=== PATIENT | female | born 1985 | race Caucasian/White ===

== ENCOUNTER 2017-07-24 11:14 | Inpatient (IN) | payer MEDICAID ==
[2017-07-24 13:31] LABS: HEMOGLOBIN A1C 6.8 % (0-5.9)
[2017-07-24 15:56] LABS: ADD MAN DIFF? NO
[2017-07-24 15:57] LABS: BASOPHILS % 0.1 % (0.0-2.0); EOSINOPHILS # 0.1 10^3/ul (0.0-0.5); EOSINOPHILS % 1.7 % (0.0-7.0); HEMATOCRIT 30.1 % (37.0-47.0); HEMOGLOBIN 9.7 g/dl (12.0-16.0); LYMPHOCYTES # 1.4 10^3/ul (0.8-2.9); LYMPHOCYTES % 18.8 % (15.0-51.0); MEAN CORPUSCULAR HEMOGLOBIN 29.3 pg (29.0-33.0); MEAN CORPUSCULAR HGB CONC 32.2 g/dl (32.0-37.0); MEAN CORPUSCULAR VOLUME 90.9 fl (82.0-101.0); MEAN PLATELET VOLUME 10.5 fl (7.4-10.4); MONOCYTE # 0.4 10^3/ul (0.3-0.9); MONOCYTES % 5.8 % (0.0-11.0); NEUTROPHIL # 5.5 10^3/ul (1.6-7.5); NEUTROPHILS % 72.7 % (39.0-77.0); PLATELET COUNT 250 10^3/UL (140-415); RED BLOOD COUNT 3.31 10^6/ul (4.20-5.40); RED CELL DISTRIBUTION WIDTH 13.8 % (11.5-14.5)
[2017-07-24 15:57] LABS: WHITE BLOOD COUNT 7.6 10^3/ul (4.8-10.8)
[2017-07-24] MEDS ORDERED: GLUCAGON 1 MG INJ IM (16:00)
[2017-07-24] MEDS ORDERED: GLUCOSE GEL 15 GRAM TUBE PO ×2 (16:00)
[2017-07-24] MEDS ORDERED: GLUCOSE GEL 15 GRAM TUBE BUCCAL (16:00)
[2017-07-24] MEDS ORDERED: DEXTROSE 50% 50 ML SYRINGE IV ×2 (16:00)
[2017-07-24 16:04] LABS: ALANINE AMINOTRANSFERASE 30 IU/L (13-69); ALBUMIN 3.7 g/dl (3.3-4.9); ALBUMIN/GLOBULIN RATIO 1.02; ALKALINE PHOSPHATASE 106 IU/L (42-121); ANION GAP 12 (8-16); ASPARTATE AMINO TRANSFERASE 61 IU/L (15-46); BILIRUBIN,INDIRECT 0.3 mg/dl (0-1.1); BILIRUBIN,TOTAL 0.3 mg/dl (0.2-1.3); BLOOD UREA NITROGEN 7 mg/dl (7-20); CALCIUM 9.1 mg/dl (8.4-10.2); CARBON DIOXIDE 23 mmol/L (21-31); CHLORIDE 106 mmol/L (97-110); CREATININE 0.51 mg/dl (0.44-1.00); GLUCOSE 134 mg/dl (70-220); POTASSIUM 4.2 mmol/L (3.5-5.1); SODIUM 137 mmol/L (135-144); TOTAL PROTEIN 7.3 g/dl (6.1-8.1)
[2017-07-24] MEDS: INSULIN ASPART [NOVOLOG] 3 ML PEN SC ×2 (17:51→20:41)
[2017-07-24] MEDS: ACCU-CHEK XX ×2 (17:52→20:10)
[2017-07-24] MEDS: CEPHALEXIN 500 MG CAP PO (20:43)
[2017-07-25] MEDS: INSULIN ASPART [NOVOLOG] 3 ML PEN SC ×3 (08:06→17:27)
[2017-07-25] MEDS: CEPHALEXIN 500 MG CAP PO ×3 (08:46→21:39)
[2017-07-25 09:14] LABS: ADD UMIC NO; UR ASCORBIC ACID NEGATIVE (NEGATIVE); UR BILIRUBIN (Dip) NEGATIVE (NEGATIVE); UR BLOOD (Dip) NEGATIVE (NEGATIVE); UR CLARITY CLEAR (CLEAR); UR COLOR YELLOW (YELLOW); UR GLUCOSE (Dip) 1+ mg/dL (NEGATIVE); UR KETONES (Dip) NEGATIVE (NEGATIVE); UR LEUKOCYTE ESTERASE (Dip) NEGATIVE Leu/ul (NEGATIVE); UR NITRITE (Dip) NEGATIVE (NEGATIVE); UR SPECIFIC GRAVITY (Dip) 1.015 (1.003-1.030); UR TOTAL PROTEIN (Dip) NEGATIVE (NEGATIVE); UR UROBILINOGEN (Dip) NEGATIVE (NEGATIVE)
[2017-07-25] MEDS: NPH, HUMAN INSULIN ISOPHANE 3ML VIAL SC ×2 (11:08→21:44)
[2017-07-25 16:00] LABS: COLLECTION PERIOD 24 hrs
[2017-07-25 16:51] LABS: COLLECTION PERIOD 24 hrs; SCRET 0.51 mg/dl (0.44-1.00); VOLUME 3800 ml/24hrs; VOLUME 3800 mls
[2017-07-25] MEDS ORDERED: INSULIN ASPART [NOVOLOG] 3 ML PEN SC (17:05)
[2017-07-25 17:10] LABS: CREATININE CLEARANCE 117.6 mls/min (84.0-162.0); CREATININE,URINE RANDOM 22.73 mg/dl (20-320)
[2017-07-25 17:21] LABS: CREATININE 0.45 mg/dl (0.44-1.00)
[2017-07-25] MEDS: ACCU-CHEK XX ×4 (19:00→21:37)
[2017-07-26] MEDS: ACCU-CHEK XX ×4 (08:29→20:31)
[2017-07-26] MEDS: NPH, HUMAN INSULIN ISOPHANE 3ML VIAL SC ×2 (08:36→21:21)
[2017-07-26] MEDS: INSULIN ASPART [NOVOLOG] 3 ML PEN SC ×2 (08:37→18:15)
[2017-07-26] MEDS: CEPHALEXIN 500 MG CAP PO ×3 (09:19→21:17)
[2017-07-27] MEDS: NPH, HUMAN INSULIN ISOPHANE 3ML VIAL SC ×2 (08:10→21:13)
[2017-07-27] MEDS: INSULIN ASPART [NOVOLOG] 3 ML PEN SC ×2 (08:11→17:53)
[2017-07-27] MEDS: ACCU-CHEK XX ×4 (08:16→20:06)
[2017-07-27] MEDS: CEPHALEXIN 500 MG CAP PO ×3 (08:58→21:09)
[2017-07-28] MEDS: ACCU-CHEK XX ×2 (07:38→10:24)
[2017-07-28] MEDS: CEPHALEXIN 500 MG CAP PO (07:57)
[2017-07-28] MEDS: INSULIN ASPART [NOVOLOG] 3 ML PEN SC (07:59)
[2017-07-28] MEDS: NPH, HUMAN INSULIN ISOPHANE 3ML VIAL SC (08:00)
== END 2017-07-28 13:35 | disposition home or self-care (01) | DRG 781 ==
LOC: OBT 11:14 → L-D 11:14 → OBT 12:25 → PP1 07-25 20:34 → L-D 12:25
PROVIDERS: Obstetrics & Gynecology
DX: O24.419 Gestational diabetes mellitus in pregnancy, unspecified control (principal); Z3A.28 28 weeks gestation of pregnancy
CPT/HCPCS: 76815; 76817; 76818; 80053; 81003; 82565; 82575; 82731; 82962; 83036; 84156; 85025

== ENCOUNTER 2017-10-07 06:15 | Inpatient (IN) | payer MEDICAID ==
[2017-10-07] MEDS ORDERED: METHYLERGONOVINE 0.2 MG INJ IM (08:00)
[2017-10-07] MEDS ORDERED: MISOPROSTOL 200 MCG TAB PR (08:00)
[2017-10-07] MEDS ORDERED: LIDOCAINE 1% (MPF) 30 ML INJ INJ (08:00)
[2017-10-07] MEDS ORDERED: CARBOPROST 250 MCG INJ IM (08:00)
[2017-10-07] MEDS ORDERED: OXYTOCIN 30 UNITS/LR 500 ML IV ×3 (08:00)
[2017-10-07] MEDS ORDERED: IBUPROFEN 600 MG TAB PO (08:00)
[2017-10-07] MEDS ORDERED: OXYCODONE/ACETAMINOPHEN (5/325) TAB PO (08:00)
[2017-10-07 08:21] LABS: ADD MAN DIFF? NO
[2017-10-07 08:32] LABS: WHITE BLOOD COUNT 5.2 10^3/ul (4.8-10.8)
[2017-10-07 08:32] LABS: BASOPHILS % 0.2 % (0.0-2.0); EOSINOPHILS # 0.1 10^3/ul (0.0-0.5); EOSINOPHILS % 1.5 % (0.0-7.0); HEMATOCRIT 34.3 % (37.0-47.0); HEMOGLOBIN 11.1 g/dl (12.0-16.0); LYMPHOCYTES # 1.3 10^3/ul (0.8-2.9); LYMPHOCYTES % 24.3 % (15.0-51.0); MEAN CORPUSCULAR HEMOGLOBIN 28.7 pg (29.0-33.0); MEAN CORPUSCULAR HGB CONC 32.4 g/dl (32.0-37.0); MEAN CORPUSCULAR VOLUME 88.6 fl (82.0-101.0); MONOCYTE # 0.3 10^3/ul (0.3-0.9); MONOCYTES % 6.4 % (0.0-11.0); NEUTROPHIL # 3.5 10^3/ul (1.6-7.5); PLATELET COUNT 216 10^3/UL (140-415); RED BLOOD COUNT 3.87 10^6/ul (4.20-5.40); RED CELL DISTRIBUTION WIDTH 14.4 % (11.5-14.5)
[2017-10-07 08:59] LABS: INR 0.87; PROTIME 11.9 Sec (11.9-14.9); PT RATIO 0.9
[2017-10-07 09:20] LABS: HEPATITIS B SURFACE ANTIGEN NEGATIVE (NEGATIVE)
[2017-10-07] MEDS: LACTATED RINGER'S 1,000 ML IV* ×2 (12:37→12:38)
[2017-10-07] MEDS: DEXTROSE 5%-LR 1,000 ML IV (12:47)
[2017-10-07] MEDS: OXYTOCIN 30 UNITS/LR 500 ML IV (21:31)
[2017-10-07 22:27] LABS: RAPID PLASMA REAGIN NONREACTIVE (NR)
[2017-10-08] MEDS ORDERED: BUTORPHANOL 2 MG INJ IV (04:00)
[2017-10-08] MEDS: LACTATED RINGER'S 1,000 ML IV* (04:13)
[2017-10-08] MEDS ORDERED: CEFAZOLIN 2 GM/50 ML (PMX) 50 ML IVPB (05:18)
[2017-10-08] MEDS ORDERED: CEFAZOLIN 2 GM/50 ML (PMX) 50 ML IV (05:30)
[2017-10-08] MEDS ORDERED: FENTAnyl 50 MCG/ML VIAL (07:22)
[2017-10-08] MEDS ORDERED: BUPIVACAINE 0.75%/DEXT (SPINAL) 2 ML INJ (07:22)
[2017-10-08] MEDS ORDERED: morphine SULFATE/PF (10 MG/10 ML) INJ (07:22)
[2017-10-08] MEDS ORDERED: DEXAMETHASONE 4 MG/ML 1 ML INJ (07:36)
[2017-10-08] MEDS ORDERED: ONDANSETRON 4 MG INJ (07:36)
[2017-10-08] MEDS ORDERED: PHENYLephrine (100 MCG/ML) 5ML SYG (07:36)
[2017-10-08] MEDS: CEFAZOLIN 2 GM/50 ML (PMX) 50 ML IV (07:45)
[2017-10-08] MEDS ORDERED: KETOROLAC 30 MG INJ IV (09:00)
[2017-10-08] MEDS ORDERED: ONDANSETRON 4 MG INJ IV (09:00)
[2017-10-08] MEDS ORDERED: ZOLPIDEM 5 MG TAB PO (09:00)
[2017-10-08] MEDS ORDERED: NALOXONE (0.4 MG/ML) INJ IV (09:00)
[2017-10-08] MEDS ORDERED: HYDROmorphONE 0.5 MG/0.5 ML SYG IV ×2 (09:00)
[2017-10-08] MEDS ORDERED: CARBOPROST 250 MCG INJ IM (09:30)
[2017-10-08] MEDS ORDERED: OXYTOCIN 30 UNITS/LR 500 ML IV (09:30)
[2017-10-08] MEDS ORDERED: MISOPROSTOL 200 MCG TAB PR (09:30)
[2017-10-08] MEDS ORDERED: LANOLIN 7 GM TUBE TOP (09:30)
[2017-10-08] MEDS: OXYTOCIN 30 UNITS/LR 500 ML IV (09:30)
[2017-10-08] MEDS ORDERED: METHYLERGONOVINE 0.2 MG INJ IM (09:30)
[2017-10-08] MEDS: ACCU-CHEK XX ×3 (11:45→20:05)
[2017-10-08] MEDS: LACTATED RINGER'S 1,000 ML IV ×2 (15:09→23:27)
[2017-10-08] MEDS: SENNA/DOCUSATE NA (8.6MG/50MG) TAB PO (21:00)
[2017-10-09] MEDS: LACTATED RINGER'S 1,000 ML IV ×3 (07:00→23:00)
[2017-10-09 07:17] LABS: ADD MAN DIFF? NO
[2017-10-09 07:21] LABS: WHITE BLOOD COUNT 7.8 10^3/ul (4.8-10.8)
[2017-10-09 07:21] LABS: BASOPHILS % 0.1 % (0.0-2.0); EOSINOPHILS % 0.4 % (0.0-7.0); HEMATOCRIT 30.3 % (37.0-47.0); HEMOGLOBIN 9.8 g/dl (12.0-16.0); LYMPHOCYTES # 1.2 10^3/ul (0.8-2.9); LYMPHOCYTES % 15.4 % (15.0-51.0); MEAN CORPUSCULAR HEMOGLOBIN 28.2 pg (29.0-33.0); MEAN CORPUSCULAR HGB CONC 32.3 g/dl (32.0-37.0); MEAN CORPUSCULAR VOLUME 87.3 fl (82.0-101.0); MEAN PLATELET VOLUME 11.2 fl (7.4-10.4); MONOCYTE # 0.5 10^3/ul (0.3-0.9); NEUTROPHIL # 6.1 10^3/ul (1.6-7.5); NEUTROPHILS % 77.6 % (39.0-77.0); PLATELET COUNT 207 10^3/UL (140-415); RED BLOOD COUNT 3.47 10^6/ul (4.20-5.40); RED CELL DISTRIBUTION WIDTH 14.6 % (11.5-14.5)
[2017-10-09] MEDS ORDERED: IBUPROFEN 600 MG TAB PO (07:24)
[2017-10-09] MEDS: ACCU-CHEK XX ×4 (08:04→20:36)
[2017-10-09] MEDS: IBUPROFEN 600 MG TAB PO ×4 (08:44→23:34)
[2017-10-09] MEDS: SENNA/DOCUSATE NA (8.6MG/50MG) TAB PO ×2 (08:44→20:36)
[2017-10-09] MEDS: OXYCODONE/ACETAMINOPHEN (5/325) TAB PO ×2 (16:56→21:06)
[2017-10-09] MEDS: FERROUS SULFATE (EC) 325 MG TAB PO (20:36)
[2017-10-10] MEDS: IBUPROFEN 600 MG TAB PO ×3 (05:37→17:32)
[2017-10-10] MEDS: FERROUS SULFATE (EC) 325 MG TAB PO ×2 (08:32→20:51)
[2017-10-10] MEDS: OXYCODONE/ACETAMINOPHEN (5/325) TAB PO ×3 (08:32→21:25)
[2017-10-10] MEDS: SENNA/DOCUSATE NA (8.6MG/50MG) TAB PO ×2 (08:32→20:51)
[2017-10-10] MEDS: ACCU-CHEK XX ×4 (08:46→20:50)
[2017-10-10] MEDS: NA PHOSPHATE/BIPHOS 133 ML ENEMA PR (21:11)
[2017-10-11] MEDS: IBUPROFEN 600 MG TAB PO ×3 (00:07→12:24)
[2017-10-11] MEDS: ACCU-CHEK XX ×2 (08:31→10:05)
[2017-10-11] MEDS: SENNA/DOCUSATE NA (8.6MG/50MG) TAB PO (08:32)
[2017-10-11] MEDS: FERROUS SULFATE (EC) 325 MG TAB PO (08:32)
== END 2017-10-11 15:15 | disposition home or self-care (01) | DRG 766 ==
LOC: L-D 06:15 → PP1 10-08 11:18
PROVIDERS: Obstetrics & Gynecology
PROC: 10D00Z1 Extraction of Products of Conception, Low, Open Approach (ICD-10-PCS; principal; 2017-10-08 06:00)
PROC: 3E033VJ Introduction of Other Hormone into Peripheral Vein, Percutaneous Approach (ICD-10-PCS; 2017-10-08 06:00)
DX: O24.429 Gestational diabetes mellitus in childbirth, unspecified control (principal); O36.63X0 Maternal care for excessive fetal growth, third trimester, not applicable or unspecified; Z3A.39 39 weeks gestation of pregnancy; Z37.0 Single live birth
CPT/HCPCS: 76815; 82962; 85025; 85610; 85730; 86592; 86850; 86900; 86901; 87340